=== PATIENT | male | born 1995 | race Caucasian/White ===

== ENCOUNTER 2024-08-10 12:30 | Emergency (ER) | payer BC, SELFPAY ==
--- NOTE | ~2024-08-10 | XR_ITS ---
EXAMINATION: XR hand RT min 3V DATE: 08/10/2024 13:19 INDICATION: Right hand tenderness. TECHNIQUE: 3 views of right hand were obtained. COMPARISON: None. FINDINGS: Alignment is normal. No fracture. Joint spaces are normal. IMPRESSION: 1. Normal right hand. Reviewed, dictated and finalized at location A. IMPRESSION: 1. Normal right hand.
[2024-08-10 12:56] VITALS: BP 122/77; PULSE 84; RESP 18; TEMP 36.5; O2SAT 99
--- NOTE | 2024-08-10 13:03 | ED_ITS ---
HPI - Extremity Injury (Upper) General Chief Complaint: Extremity Injury, Upper Stated Complaint: RT Hand injury Time Seen by Provider: 08/10/24 13:03 Source: patient Mode of arrival: ambulatory Limitations: no limitations History of Present Illness HPI narrative: 28-year-old male presents with pain to center of palm for 2 weeks. Patient states he was vigorously scrubbing dried rice off a dish and felt shooting pains through his hand. Reports with some movements of his fingers he can reproduce this shooting pain. Has a weak track maintainer since injury. distal neurovascularly intact. All systems reviewed and negative except as noted above. Related Data Home Medications Medication Instructions Recorded Confirmed bupropion HCl 200 mg tablet,12 hr mg PO 08/10/24 sustained-release buspirone 10 mg tablet mg 08/10/24 lisinopril 10 mg tablet mg 08/10/24 Allergies Allergy/AdvReac Type Severity Reaction Status Date / Time No Known Allergies Allergy Verified 08/10/24 12:55 Review of Systems Review of Systems: CONSTITUTIONAL: Denies fever, chills, or sweats. EYES: Denies visual changes, redness, or discharge. ENT: Denies rhinorrhea, congestion, sore throat, or otalgia. CARDIOVASCULAR: Denies chest pain, palpitations, or edema. RESPIRATORY: Denies cough or dyspnea. GASTROINTESTINAL: Denies abdominal pain, nausea, vomiting, or diarrhea. GENITOURINARY: Denies dysuria or hematuria. SKIN: Denies rash or itching. MUSCULOSKELETAL: Denies back pain, joint pain, or myalgia. reports pain to palm of right hand with painful, weak track maintainer. NEUROLOGIC: Denies headache, numbness, or weakness. PSYCHIATRIC: Denies anxiety or depression. All other systems reviewed are negative, except as documented in HPI. PMFSH Comments At time of signature, agree with nursing past medical, surgical, social and family history. There is no relevant family history pertinent to the presenting complaint. Exam Narrative: GENERAL: This is a well-nourished, well-developed patient, in no apparent distress. HEAD: normocephalic, atraumatic. EYES: PERRL. Sclera clear/white. Vision is grossly intact. EARS: External ears normal NOSE: External nose normal NECK: Neck supple, non-tender without lymphadenopathy, masses or thyromegaly. CARDIOVASCULAR: Regular rate and rhythm without murmurs, gallops, or rubs. RESPIRATORY: Clear to auscultation. Breath sounds equal bilaterally. No wheezes, rales, or rhonchi. SKIN: warm, Dry, intact with no suspicious lesions or rash, good texture and turgor. NEURO: awake, alert, and oriented to person, place and time. There were no obvious focal neurologic abnormalities. EXTREMITIES: There is some tenderness on palpation to center of palm aspect of right hand. Patient can completely extend fingers of right hand but has pain and some weakness with flexion/gripping. Course Course Level of Care: Express Care Visit Vital Signs Vital signs: Reviewed MDM - Extremity Injury (Upper) MDM Narrative Medical decision making narrative: Patient is aware of diagnosis, understands and agrees to treatment plan. Anticipatory guidance given. Patient agrees to follow-up as directed and is aware of reasons to seek care at the emergency department. Portions of this record may have been created with voice recognition software discussed x-ray results with pt. negative for fx. will refer to Dr. Hawkins for further evaluation. possible flexor tendon injury. Imaging Data My impression: Agree with radiologist Radiologist's impression: EXAMINATION: XR hand RT min 3V DATE: 08/10/2024 13:19 INDICATION: Right hand tenderness. TECHNIQUE: 3 views of right hand were obtained. COMPARISON: None. FINDINGS: Alignment is normal. No fracture. Joint spaces are normal. IMPRESSION: 1. Normal right hand. Discharge Plan Discharge Clinical Impression: Sprain and strain of right hand Patient Disposition: Home, Self-Care Condition: Stable Instructions: Hand Sprain (ED) Additional Instructions: The x-ray of your right hand was normal. Take ibuprofen or tylenol every 6 to 8 hours to treat pain. Avoid activities that increase your pain. Follow up with your doctor or hand specialist for further evaluation. Prescriptions: No Action buspirone 10 mg tablet lisinopril 10 mg tablet bupropion HCl 200 mg tablet sustained-release 12 hr PO Follow-up/Referrals: Jose Angel Hawkins MD [Physician] - 1 Week (follow up for further evaluation) Tono,MD Blaire [Primary Care Provider] - Time of Disposition: 13:34
== END 2024-08-10 13:37 | disposition home or self-care (01) ==
PROVIDERS: Emergency Provider Nurse Practitioner Family; PCP Family Medicine
DX: S63.91XA Sprain of unspecified part of right wrist and hand, initial encounter (principal); S66.911A Strain of unspecified muscle, fascia and tendon at wrist and hand level, right hand, initial encounter; X50.3XXA Overexertion from repetitive movements, initial encounter; Y93.G1 Activity, food preparation and clean up; I10 Essential (primary) hypertension; F41.9 Anxiety disorder, unspecified
CPT/HCPCS: 73130; 99213; G0463

== ENCOUNTER 2024-09-12 10:57 | Outpatient (CLI) | payer BC, SELFPAY ==
--- NOTE | ~2024-09-12 | MR_ITS ---
EXAMINATION: MR hand RT wo/w con DATE: 09/12/2024 12:28 INDICATION: Palmar mass at the right hand TECHNIQUE: Magnetic resonance imaging (MRI) of the right hand was performed without and with 20 mL Mu ltihance intravenous contrast. Sequences included axial, sagittal and coronal T1-weighted FSE and T2- weighted FS FSE, axial T1-weighted FS FSE and post contrast axial, sagittal and coronal T1-weighted F S FSE. COMPARISON: Radiographs dated 08/10/2024 FINDINGS: Bone alignment is normal. Normal marrow signal throughout with no reactive edema, fracture or patholo gic marrow replacing process. Joint spaces are normal physiologic amount of fluid. The collateral lig ament complex at the metacarpophalangeal and interphalangeal joints are normal. There is mild T2 hype rintense enhancing tenosynovitis extending along the flexor tendon sheath to the fifth digit. There i s is suggestion of a partial tear of the flexor digitorum superficialis tendon to the fifth digit at the level of the necks of the fourth and fifth metacarpals. The flexor digitorum superior profundus t endon to the fifth digit and the remaining flexor and extensor tendons are normal. There is mild marco a a and non masslike enhancement in the fourth lumbrical muscle with suggestion of some architectural d istortion suggesting partial tear/moderate grade strain. The carpal tunnel and Guyon's canal are unre markable. Physiologic amount fluid in the joint spaces. No abnormal masses or fluid collections ident ified. IMPRESSION: 1. Mild tenosynovitis along the flexor tendons to the fifth digit with suggestion of possible partial -thickness tear to the flexor digitorum superficialis tendon at the level of the metacarpal necks. 2. Moderate grade strain/partial tear at the fourth lumbrical muscle. Reviewed, dictated and finalized at location A. COATER IMPRESSION: 1. Mild tenosynovitis along the flexor tendons to the fifth digit with suggesti on of possible partial-thickness tear to the flexor digitorum superficialis ten don at the level of the metacarpal necks. 2. Moderate grade strain/partial tear at the fourth lumbrical muscle.
== END 2024-09-12 10:58 | disposition home or self-care (01) ==
PROVIDERS: PCP Family Medicine; Visit Provider Plastic Surgery
DX: M65.841 Other synovitis and tenosynovitis, right hand (principal); S66.11 Strain of flexor muscle, fascia and tendon of other and unspecified finger at wrist and hand level
CPT/HCPCS: 73220; A9577

== ENCOUNTER 2025-08-07 18:07 | Emergency (ER) | payer BC, SELFPAY ==
--- NOTE | ~2025-08-07 | XR_ITS ---
XR chest 2V HOSTORY: cough x6wks COMPARISON:[ None] FINDINGS: Frontal and lateral views of the chest were obtained. The lungs are clear. The heart size is normal in size. Pulmonary vasculature is unremarkable. Osseous structures are intact. IMPRESSION: No acute lung findings.] [ ] Reviewed, dictated and finalized at location S.
--- OUTSIDE RECORDS SUMMARY | 2025-08-07 18:11 | XMS_ITS | Encounter Summary ---
Author Organization [facility] Address [address] [place] [address] Care Team Providers Care Cashier Self Service Gasoline Name Role Phone Blaire Power MD Primary Care Provider [phone] Encounter Details Date Type Department Care Team (Late st Contact Info) Description 02/11/2025 VOIP [place] Message Enc [facility] Family & Internal Medicine [address] [address] [facility] Provider Zepbound Social History Tobacco Use Types Packs/Day Years Used Date Smoking Tobacco: Former Cigarettes Q uit: 2020 Smokeless Tobacco: Never Alcohol Use Standard Drinks/Week Comments Not Currently 0 (1 standard drink = 0.6 oz pur e alcohol) PHQ-2 Answer Date Recorded Patient Health Questionnaire-2 Score 0 11/12/2024 Sex and Gender Information Value Date Recorded Sex Assigned at Male 11/12/2024 3:50 PM DIRECTOR SUMMER SESSIONS Legal Sex Male 4:02 PM CDT Gender Identity Not on file Sexual Orientation Not on file documented as of this encounter Plan of Treatment Upcoming Encounters Date Type Department Care Team (Late Contact Info) Description 10/26/2025 3:00 PM DIRECTOR SUMMER SESSIONS Office Visit [facility] Family & Internal [address] [address] [place] [id number] [place] [address]. [address] [place] [address] 01/22/2026 9:00 AM CDT Office Visit [facility] Family & Internal Medicine - [place] [address] [place] [address] [place] [address] [facility] [address]quita. [address] [place] [address] documented as of this encounter Visit Diagnoses Not on filedocumented in this encounter Additional Health Concerns Assessment Noted Time PHQ-9 Depression Total Score: 2 11/12/19 25 4:04 PM DIRECTOR SUMMER SESSIONS documented as of this encounter Care Teams Cashier Self Service Gasoline Relationship Specialty [place] [id number] [facility] [address] [place] [address] PCP - General FAMILY PRACTICE 07/03/22 documented as of this encounter
--- OUTSIDE RECORDS SUMMARY | 2025-08-07 18:11 | XMS_ITS | Encounter Summary ---
Author Organization [facility] Address [address] [place] [address] Care Team Providers Care Furniture Builder Name Role Phone Blaire Power MD Primary Care Provider [phone] Encounter Details Date Type Department Care Team (Late st Contact Info) Description 04/19/2024 MyChart Message Enc [facility] Family & Internal Medicine [address] [address] [place] [id number] [facility]. [address] [place] [address] Sinus Infection - Probably Bacteria Social History Tobacco Use Types Packs/Day Years Used Date Smoking Tobacco: Former Cigarettes Q uit: 2020 Smokeless Tobacco: Never Alcohol Use Standard Drinks/Week Comments Not Currently 0 (1 standard drink = 0.6 oz pur e alcohol) PHQ-2 Answer Date Recorded Patient Health Questionnaire-2 Score 2 01/03/2024 Sex and Gender Information Value Date Recorded Sex Assigned at Male 11/12/2024 3:50 PM AUTOMOTIVE SALESPERSON Legal Sex Male 4:02 PM CDT Gender Identity Not on file Sexual Orientation Not on file documented as of this encounter Plan of Treatment Upcoming Encounters Date Type Department Care Team (Late st Contact Info) Description 10/26/2025 3:00 PM AUTOMOTIVE SALESPERSON Office Visit [facility] Family & Internal Medicine [address] [address] [place] [id number] [address] [place] [address] 01/22/2026 9:00 AM CDT Office Visit [facility] Medical [facility] Family & Internal Medicine - [place] [address] [place] [phone] [place] [phone] [facility]. [address] [place] [address] documented as of this encounter Visit Diagnoses Not on filedocumented in this encounter Additional Health Concerns Assessment Noted Time PHQ-9 Depression Total Score: 11 024 8:16 AM CDT documented as of this encounter Care Teams Furniture Builder Relationship Specialty [place] [id number] [facility]. [address] [place] [address] PCP - General FAMILY PRACTICE 07/03/22 documented as of this encounter
--- OUTSIDE RECORDS SUMMARY | 2025-08-07 18:11 | XMS_ITS | Encounter Summary ---
Author Organization [facility] Address [address] [place] [address] Care Team Providers Care Inspector Cold Working Name Role Phone Blaire Power MD Primary Care Provider [phone] Encounter Details Date Type Department Care Team (Late st Contact Info) Description 07/27/2025 Results Follow-Up [facility] Family & Internal Medicine [address] [address] [place] [id number] [employer] [place] [address] MG/PCCL UDS W CONF Social History Tobacco Use Types Packs/Day Years Used Date Smoking Tobacco: Former Cigarettes Q uit: 2020 Smokeless Tobacco: Never Alcohol Use Standard Drinks/Week Comments Not Currently 0 (1 standard drink = 0.6 oz pur e alcohol) PHQ-2 Answer Date Recorded Patient Health Questionnaire-2 Score 0 11/12/2024 Sex and Gender Information Value Date Recorded Sex Assigned at Male 11/12/2024 3:50 PM COMPLIANCE MONITOR Legal Sex Male 4:02 PM CDT Gender Identity Not on file Sexual Orientation Not on file documented as of this encounter Plan of Treatment Upcoming Encounters Date Type Department Care Team (Late st Contact Info) Description 10/26/2025 3:00 PM COMPLIANCE MONITOR Office Visit [facility] Family & Internal Medicine [facility] [address] [place] [address] [place] [address] [employer] [facility] [place] [address] 01/22/2026 9:00 AM CDT Office Visit [facility] Medical Group Family & Internal Medicine - [place] [address] [place] [phone] [place] [address] [facility] [address] [place] [address] documented as of this encounter Visit Diagnoses Not on filedocumented in this encounter Additional Health Concerns Assessment Noted Time PHQ-9 Depression Total Score: 2 11/12/19 25 4:04 PM COMPLIANCE MONITOR documented as of this encounter Care Teams Inspector Cold Working Relationship Specialty [place] [address] [facility] Marquita. [address] [place] [address] PCP - General FAMILY PRACTICE 07/03/22 documented as of this encounter
--- OUTSIDE RECORDS SUMMARY | 2025-08-07 18:12 | XMS_ITS | Encounter Summary ---
Author Organization [facility] Address [address] [place] [address] Care Team Providers Care Pantograph Watcher Name Role Phone Blaire Power MD Primary Care Provider [phone] Encounter Details Date Type Department Care Team (Late st Contact Info) Description 01/04/2023 Cay[place] Systemst Message Enc [facility] Medical Group Family & Internal Medicine [facility] [address] [place] [address] Bl[place] Power [place] [id number] [place] [address]. [address] [place] [address] ADHD Follow Up Social History Tobacco Use Types Packs/Day Years Used Date Smoking Tobacco: Former Cigarettes Q uit: 2020 Smokeless Tobacco: Never Alcohol Use Standard Drinks/Week Comments Yes 0 (1 standard drink = 0.6 oz pur e alcohol) PHQ-2 Answer Date Recorded Patient Health Questionnaire-2 Score 0 10/18/2022 Sex and Gender Information Value Date Recorded Sex Assigned at Male 11/12/2024 3:50 PM ENTRY LEVEL ELECTRICAL ENGINEER Legal Sex Male 4:02 PM CDT Gender Identity Not on file Sexual Orientation Not on file documented as of this encounter Progress Notes * Christina Mendez RN - 01/04/2023 11:04 AM CDT Please advise. documented in this encounter Plan of Treatment Upcoming Encounters Date Type Department Care Team (Late st Contact Info) Description 10/26/2025 3:00 PM ENTRY LEVEL ELECTRICAL ENGINEER Office Visit [facility] Family & Internal Medicine [facility] [address] [place] [address] [place] [address] [address] [place] [address] 01/22/2026 9:00 AM CDT Office Visit [facility] Family & Internal Medicine [facility] [address] [place] [phone] [place] [address] [address]. [address] [place] [address] documented as of this encounter Visit Diagnoses Diagnosis Attention deficit hyperactivity disorder (ADHD), combined type- Primary documented in this encounter Additional Health Concerns Assessment Noted Time PHQ-9 Depression Total Score: 1 10/18/19 23 1:22 PM ENTRY LEVEL ELECTRICAL ENGINEER documented as of this encounter Care Teams Pantograph Watcher Relationship Specialty [place] [address] [facility] [address] [place] [address] PCP - General FAMILY PRACTICE 07/03/22 documented as of this encounter
--- OUTSIDE RECORDS SUMMARY | 2025-08-07 18:12 | XMS_ITS | Encounter Summary ---
Author Organization [facility] Address [address] [place] [address] Care Team Providers Care Boom Pump Operator Name Role Phone Blaire Power MD Primary Care Provider [phone] Encounter Details Date Type Department Care Team (Late st Contact Info) Description 03/21/2023 Fetchnotes Message Enc [facility] Family & Internal Medicine [address] [address] [facility] Provider Adderall Social History Tobacco Use Types Packs/Day Years Used Date Smoking Tobacco: Former Cigarettes Q uit: 2020 Smokeless Tobacco: Never Alcohol Use Standard Drinks/Week Comments Yes 0 (1 standard drink = 0.6 oz pur e alcohol) PHQ-2 Answer Date Recorded Patient Health Questionnaire-2 Score 0 10/18/2022 Sex and Gender Information Value Date Recorded Sex Assigned at Male 11/12/2024 3:50 PM MAGNETIC TAPE WINDER Legal Sex Male 4:02 PM CDT Gender Identity Not on file Sexual Orientation Not on file documented as of this encounter Plan of Treatment Upcoming Encounters Date Type Department Care Team (Late Contact Info) Description 10/26/2025 3:00 PM MAGNETIC TAPE WINDER Office Visit [facility] Family & Internal [address] [address] Blaire Power [place] [phone] [place] [address]. [address] [place] [address] 01/22/2026 9:00 AM CDT Office Visit [facility] Medical [facility] Family & Internal Medicine - [place] [address] [place] [address] [place] [address] [facility] Marquita. [address] [place] [address] documented as of this encounter Visit Diagnoses Not on filedocumented in this encounter Additional Health Concerns Assessment Noted Time PHQ-9 Depression Total Score: 1 10/18/19 23 1:22 PM MAGNETIC TAPE WINDER documented as of this encounter Care Teams Boom Pump Operator Relationship Specialty [place] [address] [facility] [address] [place] [address] PCP - General FAMILY PRACTICE 07/03/22 documented as of this encounter
--- OUTSIDE RECORDS SUMMARY | 2025-08-07 18:12 | XMS_ITS | Clinical Summary ---
Author Organization [facility] Address [facility] [place] [address] Care Team Providers Care Casket Inspector Name Role Phone Blaire Power MD Primary Care Provider [phone] Allergies No known active allergies Medications lisinopril (PRINIVIL) 10 MG tabletIndications :Primary hypertension Take 1 tablet (10 mg total) by mouth daily. 90 tablet 3 5 Active triamcinolone (KENALOG) 0.1 % creamIndications: Chronic eczema Apply topically 2 (two) times daily. 28.4 g 2 5 Active busPIRone (BUSPAR) 10 MG tabletIndications :Generalized anxiety disorder Take 1 tablet (10 mg total) by mouth 3 (three) times daily. 90 tablet 5 5 Active tirzepatide (ZEPBOUND) 10 MG/0.5ML injectionIndicati ons:Weight Loss Inject 10 mg into the skin once a week. Indications: Weight Loss 6 mL 3 5 Active lisdexamfetamine (VYVANSE) 20 MG capsuleIndication s:Attention deficit hyperactivity disorder (ADHD), predominantly inattentive type Take 1 capsule (20 mg total) by mouth every morning. 30 capsule 5 Active lisdexamfetamine (VYVANSE) 20 MG capsuleIndication s:Attention deficit hyperactivity disorder (ADHD), predominantly inattentive type Take 1 capsule (20 mg total) by mouth every morning. 30 capsule 5 Active lisdexamfetamine (VYVANSE) 20 MG capsuleIndication s:Attention deficit hyperactivity disorder (ADHD), predominantly inattentive type Take 1 capsule (20 mg total) by mouth every morning. 30 capsule 5 Active buPROPion SR 200 MG TABLET SR 12 HR 12 hr tabletIndications :Attention deficit hyperactivity disorder (ADHD), predominantly inattentive type Take 1 tablet by mouth 2 (two) times daily. 60 tablet 5 5 025 Discontin ued(Thera py completed ) busPIRone (BUSPAR) 10 MG tabletIndications :Generalized anxiety disorder Take 1 tablet (10 mg total) by mouth 3 (three) times daily. 90 tablet 5 5 025 Discontin ued(Reord er) lisdexamfetamine (VYVANSE) 20 MG capsuleIndication s:Attention deficit hyperactivity disorder (ADHD), predominantly inattentive type Take 1 capsule (20 mg total) by mouth every morning. 30 capsule 5 025 Discontin ued(Reord er) lisdexamfetamine (VYVANSE) 20 MG capsuleIndication s:Attention deficit hyperactivity disorder (ADHD), predominantly inattentive type Take 1 capsule (20 mg total) by mouth every morning. 30 capsule 5 025 Discontin ued(Reord er) lisdexamfetamine (VYVANSE) 20 MG capsuleIndication s:Attention deficit hyperactivity disorder (ADHD), predominantly inattentive type Take 1 capsule (20 mg total) by mouth every morning. 30 capsule 5 025 Discontin ued(Reord er) tirzepatide (ZEPBOUND) 7.5 MG/0.5ML injectionIndicati ons:Weight Loss Inject 7.5 mg into the skin once a week. Indications: Weight Loss 2 mL 5 025 Discontin ued(Dose adjustmen t) Active Problems Problem Noted Date Diagnosed Date Cat allergies 07/06/2022 Chronic eczema 07/06/2022 Attention deficit hyperactiv ity disorder (ADHD), combined type 07/06/2022 Generalized anxiety disorder 07/06/2022 Encounters Date Type Department Care Team Description 07/27/2025 Results Follow-Up [facility] Family & Internal Medicine [address] [address] Blaire Power MD MG/PCCL UDS W CONF 07/22/2025 4:40 PM CDT Office Visit [facility] Family & Internal Medicine [address] [address] Blaire Power MD Medication Management 07/22/2025 Travel from Last 3 Months Immunizations Immunization Administration Dates Next Due FLUCELVAX (ccIIV3, TRIVALENT, 0.5mL) 07/17/2024 Tdap (Generic) 07/17/2024 Social History Tobacco Use Types Packs/Day Years Used Date Smoking Tobacco: Former Cigarettes Q uit: 2020 Smokeless Tobacco: Never Tobacco Cessation:Counseling Given: No Alcohol Use Standard Drinks/Week Comments Not Currently 0 (1 standard drink = 0.6 oz pur e alcohol) PHQ-2 Answer Date Recorded Patient Health Questionnaire-2 Score 0 11/12/2024 Sex and Gender Information Value Date Recorded Sex Assigned at Male 11/12/2024 3:50 PM CHILD DAY CARE PROVIDER Legal Sex Male 4:02 PM CDT Gender Identity Not on file Sexual Orientation Not on file Last Filed Vital Signs Vital Sign Reading Time Taken Comments Blood Pressure 133/83 07/22/2025 4:36 PM CDT Pulse 68 07/22/2025 4:36 PM CDT Temperature 36.6 C (97.8 F) 07/22/2025 4:36 PM CDT Respiratory Rate 16 07/22/2025 4:36 PM CDT Oxygen Saturation 98% 07/22/2025 4:36 PM CDT Inhaled Oxygen Concentration - - Weight 115.2 kg (254 lb) 07/22/2025 4:36 PM CDT Height 188 cm (6' 2) 07/22/2025 4:36 PM CDT Body Mass Index 32.61 07/22/2025 4:36 PM CDT Plan of Treatment Upcoming Encounters Date Type Department Care Team (Late st Contact Info) Description 10/26/2025 3:00 PM CHILD DAY CARE PROVIDER Office Visit [facility] Family & Internal Medicine [address] [phone] [place] [address] [place] [phone] 01/22/2026 9:00 AM CDT Office Visit [facility] Family & Internal Medicine [facility] [address] [place] [address] [place] [address] [place] [address] Health Maintenance Due Date Last Done Comments Annual Physical 1997 Hepatitis C 2012 Hepatitis B Vaccines (1 of 3 - 19+ 3-dose series) 2013 HPV Vaccines (1 - 3-dose SCD M series) 2021 COVID-19 Vaccine (2 - 2024-2 6 season) 2025 07/17/2024 Influenza Adult (#1) 2025 07/17/2024 DTaP, Tdap and Td Vaccines ( 2 - Td or Tdap) 07/17/2034 07/17/2024 PHQ-2 (Physician [place]) Completed 11/12/2024 Hepatitis A Vaccines Aged Out No long er eligible based on patient's age to complete this topic Meningococcal B Vaccine Aged Out No l onger eligible based on patient's age to complete this topic Meningococcal Vaccine Aged Out No masoud morenita eligible based on patient's age to complete this topic Pneumococcal Vaccine: Pediat rics (0 to 5 Years) and At-Risk Patients (6 to 49 Years) Aged Out No longer eligi ble based on patient's age to complete this topic RSV Immunizations Under 20 Months Aged Out No longer eligible based on patient's age to complete this topic Procedures Procedure Name Priority Date/Time Associated Diagnosis Comments MG/PCCL UDS W CONF Routine 07/22/2025 4: 59 PM CDT Medication management Therapeutic drug monitoring from Last 3 Months Results * (ABNORMAL) MG/PCCL UDS W CONF (07/22/2025 4:59 PM CDT) RESULT SUMMARY [facility] Comment: Prescribed Prescribed Not Prescribed Consistent Inconsistent Inconsistent Amphetamine FENTANYL SCREEN (U) NEGATIVE <0.5 ng/mL [facility] ACETYLMORPHINE (U) NEGATIVE <10 ng/mL [facility] DESMETHYLTRAMADOL (U) NEGATIVE <100 ng/mL [facility] TRAMADOL (U) NEGATIVE <100 ng/mL [facility] TRAMADOL COMMENTS [facility] [place] Comment:See LDT Notes AMPHETAMINES PM POSITIVE(A) <500 ng/mL [facility] AMPHETAMINES PM CONFIRMATION (U) 642(H) <250 ng/mL [facility] [employer] AMPHETAMINES PM MEDMATCH CONF (U) INCONSISTEN T(A) [facility] METHAMPHETAMINE PM (U) NEGATIVE <250 ng/mL [facility] AMPHETAMINES COMMENT [facility] Comment:See Amphetamines Not es, LDT Notes BARBITURATES PM (U) NEGATIVE <300 ng/mL [facility] BENZODIAZEPINES PM (U) NEGATIVE <100 ng/mL [facility] COCAINE METABOLITE PM (U) NEGATIVE <150 ng/mL [facility] MARIJUANA METABOLITE PM (U) NEGATIVE <20 ng/mL [facility] [facility] METHADONE PM (U) NEGATIVE <100 ng/mL [facility] [employer] [facility] OPIATES PM (U) NEGATIVE <100 ng/mL [facility] [employer] [facility] OXYCODONE PM (U) NEGATIVE <100 ng/mL [facility] CREATININE RANDOM (U) 208.7 > or = 20.0 mg/dL [facility] pH PM (U) 7.7 4.5 - 9.0 [facility] OXIDANT NEGATIVE <200 mcg/mL [facility] NOTE [facility] Comment: This drug testing is for medical treatment only. Analysis was performed as non-forensic testing and these results should be used only by healthcare providers to render diagnosis or treatment, or to monitor progress of medical conditions. Amphetamines Notes: Amphetamine detected is consistent with the use of the drug Amphetamine. Amphetamine can be a prescribed drug and is also a metabolite of methamphetamine. LDT Notes: Confirmation tests were developed and their analytical performance characteristics have been determined by [facility]. It has not been cleared or approved by the FDA. This assay has been validated pursuant to the CLIA regulations and is used for clinical purposes. medMATCH(R) enables providers to identify if drug use is consistent or inconsistent with a corresponding prescribed medication(s) list. Healthcare Providers needing Interpretation assistance, please contact us at [phone] ( ) M-F, 8am to 10pm EST URINE SPECIMEN / Unknown 07/22/2025 4:59 PM CDT 07/23/2025 12:13 AM CDT Narrative Resulting Agency Comment Performing Organization Information: Site ID: [id number] [facility] Address: [address] [place] [address] Director: Jorge Cruz Site ID: [id number] Name: [facility] Address: [address] [place] [address] Director: Ciara Ratliff MD Blaire Power MD URINE ORDERABLES Final Result [facility] [address] [place], [place] [address] [place] [address] [place] [address] from Last [address] [facility] Care Teams Casket Inspector Relationship Specialty [place] [id number] [place] [id number] PCP - General FAMILY PRACTICE 07/03/22
[2025-08-07 18:15] VITALS: BP 129/72; PULSE 139; RESP 18; TEMP 37.6; O2SAT 100
[2025-08-07 18:17] VITALS: PULSE 139
--- NOTE | 2025-08-07 18:45 | ED_ITS ---
HPI - URI/Sore Throat General Chief Complaint: Upper Respiratory Infection Stated Complaint: URI Time Seen by Provider: 08/07/25 18:15 Source: patient and RN notes reviewed Mode of arrival: ambulatory Limitations: no limitations History of Present Illness HPI Narrative: 29-year-old male patient presents today complaining of 6 week history of cough. Two days ago he developed body aches, chills, congestion, post nasal drip, sore throat, fever with a T-max of 100?, sore throat. He has tried Tylenol, ibuprofen, and Mucinex without much improvement. History of exercise-induced asthma. He does not smoke or vape. Related Data Home Medications ?Medication ?Instructions ?Recorded ?Confirmed ?Last Taken ?Type buspirone 10 mg tablet 10 mg DIRECTED 08/10/24 1 Unknown History lisinopril 10 mg tablet 10 mg DIRECTED 08/10/24 1 Unknown History lisdexamfetamine 20 mg capsule mg 08/07/25 Unknown Hi story tirzepatide (weight loss) 10 mg subcut 08/07/25 Unkno wn History mg/0.5 mL subcutaneous pen injector (Zepbound) Allergies Allergy/AdvReac Type Severity Reaction Status Date / Time No Known Allergies [facility] 08/07[facility]25 18:[facility] Social History Social History (Reviewed 08/07/25 @ 18:47 by Carolyn Wolfe, MASTER SCHEDULER, TELEPHONE INFORMATION SUPERVISOR) Smoking status: Never smoker Comments At time of signature, I have reviewed and agree with nursing past medical, surgical, social and family history unless otherwise noted. Please see nursing chart for further information. There is no relevant family history pertinent to the presenting complaint Exam Narrative: GENERAL: Mildly ill-appearing, well-nourished, and in no acute distress. HEAD: Normocephalic, atraumatic. EYES: EOMI. No redness or drainage. Conjunctivae normal. ENT: Mucous membranes pink and moist. Nares congested with rhinorrhea. TMs normal bilaterally. Throat erythematous posteriorly with some clear postnasal drainage. Uvula midline. NECK: Normal AROM. Supple. No lymphadenopathy. CHEST: No respiratory distress. Clear to auscultation. HEART: Regular rhythm. No murmur appreciated. + tachycardia EXTREMITIES: Normal range of motion. No edema. SKIN: Warm, dry, no rash. Capillary refill normal. Normal skin turgor. NEURO: No focal deficits. Alert and oriented x3. Gait steady. PSYCH: Normal affect. No signs of depression or anxiety. Course Course Level of Care: Express Care Visit Vital Signs Vital signs: Vital Signs Temperature 99.6 F 08/07/25 18:15 Pulse Rate 139 H 08/07/25 18:15 Respiratory Rate 18 08/07/25 18:15 Blood Pressure 129/72 08/07/25 18:15 Pulse Oximetry 100 08/07/25 18:15 Oxygen Delivery Room Air 08/07/25 18:15 Temperature 99.6 F 08/07/25 18:15 Pulse Rate 139 H 08/07/25 18:17 Respiratory Rate 18 08/07/25 18:15 Blood Pressure 129/72 08/07/25 18:15 Pulse Oximetry 100 08/07/25 18:15 Oxygen Delivery Room Air 08/07/25 18:15 Reviewed. Recheck of patient's pulse prior to discharge was 100bpm. MDM - URI/Sore Throat MDM Narrative Medical decision making narrative: 29-year-old male patient presents today complaining of 6 week history of cough. Two days ago he developed body aches, chills, congestion, post nasal drip, sore throat, fever with a T-max of 100?, sore throat. He has tried Tylenol, ibuprofen, and Mucinex without much improvement. Upon exam, patient is mildly ill-appearing with an erythematous posterior pharynx with some postnasal drainage. Nares are congested slightly with some mild rhinorrhea as well. Lung auscultation is normal. Chest x-ray negative. Influenza and COVID-19 test negative. Patient will be treated with some prednisone for his chronic cough along with cheratussin. Additional symptoms today are likely an acute viral illness, which he will manage with OTC medications as needed. Patient agrees with plan. VSS. Recheck of patient's pulse prior to discharge was 100bpm. He is nontoxic appearing without distress. Anticipatory guidance and ED precautions given. Differential Diagnosis Differential diagnosis: Likely upper respiratory infection, viral infection, influenza and other (COVID-19, pneumonia) Lab Data Attestation: I reviewed the patient's lab results. Labs: Lab Results 08/07/25 Range/Units 19:02 POC Influenza A Ag Negative (Negative) POC Influenza B Ag Negative (Negative) POC SARS CoV-2 Ag Negative (Negative) Imaging Data Radiologist's impression: ITS Impressions Chest X-Ray 08/07/25 18:45 IMPRESSION: No acute lung findings.] [ ] Critical Care Time Critical Care Time Critical Care Time: No Discharge Plan Discharge Clinical Impression: Viral syndrome, Bronchitis Patient Disposition: Home Condition: Stable Instructions: Acute Bronchitis (ED), Viral Syndrome (ED) Additional Instructions: Your chest x-ray is negative. Your influenza and COVID-19 tests are negative. Please take the prednisone and Cheratussin as prescribed. Do not drive within 6 hours of taking the Cheratussin as it can make you drowsy. Rest and stay hydrated. Follow-up with your PCP in 1 week if your acute symptoms are not improving. Go to the ER immediately if symptoms worsen to include chest pain, shortness of breath. Patient Language: Romanian Prescriptions: New codeine-guaifenesin 10-100 mg/5 mL liquid 5 ml PO Q6H PRN (Reason: cough) Qty: 120 0RF prednisone 50 mg tablet 50 mg PO DAILY 5 Days Qty: 5 0RF No Action buspirone 10 mg tablet 10 mg DIRECTED lisinopril 10 mg tablet 10 mg DIRECTED Zepbound 10 mg/0.5 mL pen injector SUBCUT lisdexamfetamine 20 mg capsule Follow-up/Referrals: Tono,MD Blaire [Primary Care Provider, Unknown] Stand Alone Forms: Work/School Release IP Time of Disposition: 19:12
[2025-08-07 19:03] LABS: EDCOVIDSCREEN Negative (Negative); EDINFLUASCREEN Negative (Negative); EDINFLUBSCREEN Negative (Negative)
[2025-08-07 19:08] VITALS: PULSE 100
== END 2025-08-07 19:16 | disposition home or self-care (01) ==
PROVIDERS: Emergency Provider Nurse Practitioner; PCP Family Medicine
DX: B34.9 Viral infection, unspecified (principal); J40 Bronchitis, not specified as acute or chronic; Z20.822 Contact with and (suspected) exposure to COVID-19
CPT/HCPCS: 71046; 87426; 87804; 99213; G0463